=== PATIENT | female | born 1980 | race Caucasian/White ===

== ENCOUNTER 2021-12-23 18:19 | Emergency (ER) | payer OTHER, SELFPAY ==
[2021-12-23 18:49] VITALS: BP 132/90; PULSE 56; TEMP 36.7; O2SAT 99; BMI 24.5
--- NOTE | 2021-12-23 19:05 | ED.NURSE ---
Pt L index finger lac soaking in hibiclens and sterile water.
--- NOTE | 2021-12-23 19:08 | ED.GENADULT ---
HPI - General Adult General Chief complaint: Laceration/Wound Stated complaint: SLICED FINGER (WITH FOOD SLICER) Time Seen by Provider: 12/23/21 18:27 Source: patient Mode of arrival: ambulatory Limitations: no limitations History of Present Illness HPI narrative: 41-year-old female coming in today after cutting her finger with a mandolin when she was cutting carrots at home. Denies any other injury states that she is in the so her tetanus shot is up to date. Related Data Home Medications Medication Instructions Recorded Confirmed estradiol 0.025 mg/24 hr 12/23/21 semiweekly transdermal patch progesterone micronized 100 mg mg 12/23/21 capsule Allergies Allergy/AdvReac Type Severity Reaction Status Date / Time No Known Drug Allergies Allergy Verified 12/23/21 18:53 Review of Systems Narrative: Denies other injury PFSH PFS Social History Smoking Status: Never smoker Do you use any of these nicotine containing products: None Second hand tobacco smoke exposure: No How often do you have a drink containing alcohol: monthly or less How often do you have six or more drinks on one occasion: Never AUDIT-C Alcohol total score: 1 Non-prescribed substance use: denies use Exam Narrative: Exam Narrative: Well-nourished well-developed patient in no acute distress. Alert and oriented. Answers questions appropriately. Mood and affect are appropriate. HEENT: Normocephalic atraumatic. Pupils are equally round reactive to light. Extraocular muscles are intact. Conjunctivae are moist without any icterus noted. Extremities: Patient has a laceration of the pointer finger on the left hand located on the dorsal surface right over the PIP. It is a curvilinear semi [place] that goes into the subcutaneous tissue. There are no bones or tendons visible. She has full range of motion of that finger. Skin: Well perfused without any obvious rashes. Const: Vital Signs, click to edit/add: Vital Signs - 24 hr 12/23/21 18:49 Temperature 98.0 F Pulse Rate [Right Pulse Oximeter] 56 L Blood Pressure [Ri ght Upper Arm] 132/90 H Pulse Oximetry 99 Oxygen Delivery Me thod Room Air Course Course Hospital Course: Finger was soaked and wound was cleansed. A digital block was performed. Laceration was sutured with 4-0 Ethilon without difficulty. Vital Signs Vital signs: Initial Vital Signs Temperature 98.0 F 12/23/21 18:49 Temperature Source Temporal Artery Scan 12/23/21 18:49 Pulse Rate 56 L 12/23/21 18:49 Blood Pressure 132/90 H 12/23/21 18:49 Blood Pressure Mean 104 12/23/21 18:49 Pulse Oximetry 99 12/23/21 18:49 Oxygen Delivery Method 12/23/21 18:49 Vital Signs Temperature 98.0 F 12/23/21 18:49 Pulse Rate 56 L 12/23/21 18:49 Blood Pressure 132/90 H 12/23/21 18:49 Pulse Oximetry 99 12/23/21 18:49 Oxygen Delivery Method 12/23/21 18:49 Temperature 98.0 F 12/23/21 18:49 Pulse Rate 56 L 12/23/21 18:49 Blood Pressure 132/90 H 12/23/21 18:49 Pulse Oximetry 99 12/23/21 18:49 Oxygen Delivery Method 12/23/21 18:49 Medical Decision Making MDM Narrative Medical decision making narrative: Finger laceration sutured in the ED. We discussed wound hygiene, signs and symptoms of infection, reasons to return to clinic, and scarring. Suture removal in 7-10 days with primary care. Discharge Plan Discharge Clinical Impression: Laceration Patient Disposition: Home, Self-Care Condition: Improved Additional Instructions: Keep finger clean and dry. Okay to shower like he normally would but avoid soaking your hands such as doing the dishes, taking baths or swimming. Watch for signs of infection which include redness of the area that spreads down the finger or pus draining from the incision. If this occurs follow-up with your doctor right away or return to the ER. You should follow-up with your primary care provider in 7-10 days to have your sutures removed. Prescriptions: No Action progesterone micronized 100 mg capsule Label Comments: Take 1 Capsule (100 mg) by mouth daily estradiol 0.025 mg/24 hr patch semiweekly Label Comments: Apply 1 Patch to skin two times a week Follow Up/Referrals: Provider,Not a Local [Primary Care Provider] - Stand Alone Forms: MyHealth Info Instructions
--- NOTE | 2021-12-23 19:35 | ED.NURSE ---
Bacitracin applied to both lacs on pt L index finger. Both lacs bandaged with telfa, gauze applied to distal joint to prevent flexion of finger, then gauze roll to wrap entire L index finger.
== END 2021-12-23 19:58 | disposition home or self-care (01) ==
PROVIDERS: Emergency Provider Family Medicine
DX: S61.211A Laceration without foreign body of left index finger without damage to nail, initial encounter (principal); W27.4XXA Contact with kitchen utensil, initial encounter
CPT/HCPCS: 12001; 99283